=== PATIENT | male | born 1950 | race Caucasian/White ===

== ENCOUNTER → 2020-06-19 08:46 | Outpatient (CLI) | payer OTHER, SELFPAY ==
[2020-06-19 09:44] LABS: Blood Urea Nitrogen 17 mg/dL (9-20)
== END ==
PROVIDERS: PCP Family Medicine; Referring Provider Urology; Visit Provider Urology
DX: R39.9 Unspecified symptoms and signs involving the genitourinary system (principal)
CPT/HCPCS: 36415; 84520

== ENCOUNTER → 2020-06-21 12:40 | Outpatient (CLI) | payer OTHER, SELFPAY ==
--- NOTE | 2020-06-21 12:43 | DI.CT.S_ITS ---
PROCEDURE: CT ABDOMEN PELVIS WO/W CON INDICATIONS: Other microscopic hematuria TECHNIQUE: Optional 5 mm thick noncontrast images acquired from the diaphragm to the symphysis pubis. After the administration of intravenous contrast, 5 mm thick images acquired from the diaphragm to the symphysis pubis after a 10-minute delay. 2 mm thick coronal and sagittal reformats were then performed of the kidneys and ureters. For radiation dose reduction, the following was used: automated exposure control, adjustment of mA and/or kV according to patient size. COMPARISON: None. FINDINGS: Image quality: Excellent. Lung bases: Lung bases are clear. Heart size is normal. Urinary system: Both kidneys are normal in size, without hydronephrosis or nephrolithiasis on pre-contrast images. An exophytic simple cyst is seen at the inferior pole of the right kidney measuring 3.1 cm. Additional smaller cysts are seen in both kidneys. No perinephric fat stranding. There is normal bilateral renal enhancement. Renal calyces appear normal in morphology when filled with contrast. Opacified portions of both ureters demonstrate normal caliber. Bladder wall thickness is normal. No calcified bladder stones. Other solid organs: Liver is normal in size and enhancement. Gallbladder is surgically absent. Biliary system is non dilated. Pancreas enhances normally. Spleen is normal in size and enhancement. No adrenal nodules. Peritoneum and bowel: Bowel loops demonstrate normal wall thickness and caliber. Multiple diverticula are seen in the large colon without signs of acute cholecystitis. No free fluid or air. Nodes and vessels: No retroperitoneal or mesenteric adenopathy by size criteria. Aorta and inferior vena cava are normal in size. Mild atherosclerotic calcifications are seen in the aorta. Abdominal wall: No ventral hernias. Pelvis: No pathologic free pelvic fluid. No inguinal hernias or adenopathy. 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 Bones: No suspicious bony lesions. No vertebral body compression fractures. Mild degenerative changes are seen in the included spine. IMPRESSION: 1. No urothelial mass is identified. No renal or ureteral calculus or hydronephrosis. 2. Colonic diverticulosis without signs of acute diverticulitis. Dictated by: Remington Urena M.D. on 06/21/2020 at 17:20 Approved by: Remington Urena M.D. on 06/21/2020 at 17:25
[2020-06-21 13:14] LABS: Estimated Glomerular Filt Rate > 60.0 mL/min (>60)
== END ==
PROVIDERS: PCP Family Medicine; Referring Provider Urology; Visit Provider Urology
DX: R31.29 Other microscopic hematuria (principal); R39.9 Unspecified symptoms and signs involving the genitourinary system; K57.30 Diverticulosis of large intestine without perforation or abscess without bleeding
CPT/HCPCS: 74178; 82565; Q9967

== ENCOUNTER → 2020-08-07 08:52 | Outpatient (CLI) | payer OTHER, SELFPAY ==
[2020-08-07 11:27] LABS: COVID19 -Nasal RAPID Negative (Negative)
== END ==
PROVIDERS: PCP Family Medicine; Referring Provider Physician Assistant; Visit Provider Physician Assistant
DX: Z01.812 Encounter for preprocedural laboratory examination (principal); Z20.822 Contact with and (suspected) exposure to COVID-19
CPT/HCPCS: 87635; C9803

== ENCOUNTER 2020-08-10 06:56 | Day surgery (SDC) | payer OTHER, SELFPAY ==
[2020-08-10] MEDS: PROPARACAINE 0.5% OPHTH SOL 2 DROPS EYE-OP (07:10)
[2020-08-10] MEDS: CATARACT EYE COMPOUND (10 DROPS/SYRINGE) 3 DROPS EYE-OP (07:15)
[2020-08-10 07:19] VITALS: BP 110/68; PULSE 50; RESP 16; TEMP 36.3; O2SAT 99; BMI 28.1
--- NOTE | 2020-08-10 08:10 | PM.PREOP ---
Pre-operative Note Interval Note History & Physical reviewed/Exam performed by Physician: Yes Changes to H&P: No
--- NOTE | 2020-08-10 08:10 | PM.OP.1 ---
Operative Date/Time/Diagnoses Pre-op diagnosis: Nuclear cataract right eye Procedure & Clinicians Procedure: Cataract Surgery Same procedure as scheduled: Yes Surgeon: Heladio Park Anesthesia Type: MAC +/- and Sedation Operative Notes Procedure in detail: Patient brought to the operating suite. Tetracaine drops placed in the right eye. Patient was prepped and draped in sterile manner. Wire lid speculum was placed in the eye. Betadine drops were placed on the eye. This was irrigated. Lidocaine jelly was placed on the eye. A paracentesis port was created with a side-port blade. 0.1 mL 1% preservative free lidocaine was injected into the anterior chamber. The anterior chamber was deepened with viscoelastic. 2.6 mm keratome was used to create a temporal clear corneal incision. Cystotome and Utrata forceps were used to create continuous tear capsulorrhexis. Balanced salt solution was used to hydro dissect the nucleus. The phacoemulsification handpiece was inserted and the nucleus was removed using the stop and chop technique. The irrigation aspiration handpiece was inserted and the remaining cortex was removed. Anterior chamber was deepened with viscoelastic. An Gomez ZCB00 intraocular lens with a power of 22.0 was injected into the capsular bag. Irrigation aspiration handpiece was inserted and the remaining viscoelastic was removed. Incision was hydrated with balanced salt solution and found to be leak free with pressure with Weck-Alana sponges. 0.1 mL Vigamox injected anterior chamber. 0.3 mL Kenalog 10 mg was injected subconjunctivally. Lid speculum was removed. The patient left the operating room in excellent condition. Complications: none Post-operative Condition: stable Disposition: same day surgery
[2020-08-10] MEDS: BALANCED SALT IRRIG SOLN NO.2 500 ML, EPINEPHrine 1 MG IRR (08:26)
[2020-08-10] MEDS: LIDOCAINE 2% (GLYDO) 6 ML GEL TOP (08:26)
[2020-08-10] MEDS: PHENYLEPHRINE/LIDOCAINE VIAL (OR) 0.2 ML EYE-OP (08:27)
[2020-08-10] MEDS: MOXIFLOXACIN INJ 4 MG/0.8 ML VIAL 0.5 MG EYE-OP (08:27)
[2020-08-10] MEDS: TRIAMCINOLONE 50 MG/5 ML VIAL INJ (08:27)
[2020-08-10] MEDS: CHONDROIDTIN/SOD HYALURONATE 1.05 ML SYRINGE INTRAOCULA (08:27)
[2020-08-10] MEDS: TETRACAINE 0.5% OPHTH DROPS 4 ML 2 DROPS EYE-OP (08:28)
[2020-08-10 08:44] VITALS: BP 108/71; PULSE 48; RESP 16; TEMP 36.3; O2SAT 97
== END 2020-08-10 08:45 | disposition home or self-care (01) ==
PROVIDERS: PCP Family Medicine; Referring Provider Family Medicine; Visit Provider Ophthalmology
PROC: (CPT 66984; principal; 2020-08-10 08:15)
DX: H25.11 Age-related nuclear cataract, right eye (principal); E03.9 Hypothyroidism, unspecified; E78.5 Hyperlipidemia, unspecified
CPT/HCPCS: 66984; J0171; J2250; J3301

== ENCOUNTER → 2020-08-21 09:24 | Outpatient (CLI) | payer OTHER, SELFPAY ==
[2020-08-21 12:10] LABS: COVID19 -Nasal RAPID Negative (Negative)
== END ==
PROVIDERS: PCP Family Medicine; Visit Provider Physician Assistant
DX: Z01.812 Encounter for preprocedural laboratory examination (principal); Z20.822 Contact with and (suspected) exposure to COVID-19
CPT/HCPCS: 87635; C9803

== ENCOUNTER 2020-08-24 07:26 | Day surgery (SDC) | payer OTHER, SELFPAY ==
[2020-08-24] MEDS: PROPARACAINE 0.5% OPHTH SOL 2 DROPS EYE-OP (07:42)
[2020-08-24] MEDS: CATARACT EYE COMPOUND (10 DROPS/SYRINGE) 3 DROPS EYE-OP (07:42)
[2020-08-24 07:47] VITALS: BP 115/67; PULSE 47; RESP 16; TEMP 36.3; O2SAT 99; BMI 27.6
--- NOTE | 2020-08-24 09:03 | PM.PREOP ---
Pre-operative Note Interval Note History & Physical reviewed/Exam performed by Physician: Yes Changes to H&P: No
--- NOTE | 2020-08-24 09:05 | P.OP_ITS ---
Operative Date/Time/Diagnoses Pre-op diagnosis: Nuclear Cataract Left eye Post-op diagnosis: same Procedure & Clinicians Same procedure as scheduled: Yes Surgeon: Heladio Park Anesthesia Type: MAC +/- and Sedation Operative Notes Procedure in detail: Patient brought to the operating suite. Tetracaine drops placed in the left eye. Patient was prepped and draped in sterile manner. Wire lid speculum was placed in the eye. Betadine drops were placed on the eye. This was irrigated. Lidocaine jelly was placed on the eye. A paracentesis port was created with a side-port blade. 0.1 mL 1% preservative free lidocaine was injected into the anterior chamber. The anterior chamber was deepened with viscoelastic. 2.6 mm keratome was used to create a temporal clear corneal incision. Cystotome and Utrata forceps were used to create continuous tear capsulorrhexis. Balanced salt solution was used to hydro dissect the nucleus. The phacoemulsification handpiece was inserted and the nucleus was removed using the stop and chop technique. The irrigation aspiration handpiece was inserted and the remaining cortex was removed. Anterior chamber was deepened with viscoe lastic. An Gomez DIB00 intraocular lens with a power of 22.0 was injected into the capsular bag. Irrigation aspiration handpiece was inserted and the remaining viscoelastic was removed. Incision was hydrated with balanced salt solution and found to be leak free with pressure with Weck-Alana sponges. 0.1 mL Vigamox injected anterior chamber. 0.3 mL Kenalog 10 mg was injected subconjunctivally. Lid speculum was removed. The patient left the operating room in excellent condition. Complications: none Post-operative Condition: stable Disposition: same day surgery
[2020-08-24] MEDS: MOXIFLOXACIN INJ 4 MG/0.8 ML VIAL 0.5 MG EYE-OP (09:17)
[2020-08-24] MEDS: CHONDROIDTIN/SOD HYALURONATE 1.05 ML SYRINGE INTRAOCULA (09:17)
[2020-08-24] MEDS: TETRACAINE 0.5% OPHTH DROPS 4 ML 2 DROPS EYE-OP (09:17)
[2020-08-24] MEDS: PHENYLEPHRINE/LIDOCAINE VIAL (OR) 0.2 ML EYE-OP (09:17)
[2020-08-24] MEDS: LIDOCAINE 2% (GLYDO) 6 ML GEL TOP (09:17)
[2020-08-24] MEDS: BALANCED SALT IRRIG SOLN NO.2 500 ML, EPINEPHrine 1 MG IRR (09:18)
[2020-08-24] MEDS: TRIAMCINOLONE 50 MG/5 ML VIAL INJ (09:18)
[2020-08-24 09:42] VITALS: BP 116/73; PULSE 45; RESP 14; TEMP 36.5; O2SAT 99
== END 2020-08-24 09:47 | disposition home or self-care (01) ==
PROVIDERS: PCP Family Medicine; Referring Provider Ophthalmology; Visit Provider Ophthalmology
PROC: (CPT 66984; principal; 2020-08-24 09:15)
DX: H25.12 Age-related nuclear cataract, left eye (principal); I51.9 Heart disease, unspecified; E78.5 Hyperlipidemia, unspecified; E03.9 Hypothyroidism, unspecified
CPT/HCPCS: 66984; J0171; J2250; J3301

== ENCOUNTER → 2023-05-01 11:53 | Outpatient (CLI) | payer OTHER, SELFPAY | PROVIDERS: PCP Family Medicine; Referring Provider Urology; Visit Provider Urology | DX: R39.9 Unspecified symptoms and signs involving the genitourinary system (principal) | CPT/HCPCS: 87086 ==